=== PATIENT | male | born 1995 | race Two or more races ===

== ENCOUNTER 2023-08-10 14:13 | Emergency (ER) | payer SELFPAY ==
[~2023-08-10] VITALS: Ht 170.2 cm; Wt 126.0 kg
[2023-08-10 14:32] VITALS: BP 161/79; RESP 18; O2SAT 97
[2023-08-10 14:51] LABS: Basophils # (auto) 0 10 ^3/uL (0-0.2); Basophils % (auto) 0.4 % (0.0-2.0); Eosinophils # (auto) 0.1 10 ^3/uL (0-0.8); Eosinophils % (auto) 1.2 % (0.0-7.0); Hemoglobin 15.8 g/dL (13.5-17.5); Lymphocytes # (auto) 4.1 10 ^3/uL (0.4-5.4); Lymphocytes % (auto) 37.7 % (10.0-50.0); Mean Corpuscular Hemoglobin 28.1 pg (28.0-32.0); Mean Corpuscular Hgb Conc. 33.5 g/dL (32.0-36.0); Mean Corpuscular Volume 83.8 fL (80.0-100.0); Monocytes # (auto) 0.8 10 ^3/uL (0-1.3); Monocytes % (auto) 6.9 % (0.0-12.0); Neutrophils # (auto) 5.9 10 ^3/uL (1.6-8.6); Neutrophils % (auto) 53.8 % (37.0-80.0); Nucleated Red Blood Cells % 0.1 %; Red Blood Cells 5.61 10^6/uL (4.5-5.90)
[2023-08-10 15:42] LABS: Alanine Aminotransferase 51 U/L (7-40); Albumin 4.6 g/dL (3.2-4.8); Alkaline Phosphatase 114 U/L (46-116); Anion Gap 6 (5-15); Aspartate Aminotransferase 20 U/L (13-40); BUN/Creatinine Ratio 15.3 (10.0-20.0); Blood Urea Nitrogen 13 mg/dL (9-23); Calcium 9.6 mg/dL (8.7-10.4); Carbon Dioxide 28 mmol/L (20-30); Chloride 101 mmol/L (98-107); Glucose 346 mg/dL (74-106); Potassium 4.6 mmol/L (3.5-5.1); Sodium 135 mmol/L (136-145)
[2023-08-10 15:43] LABS: Bilirubin, Total 0.3 mg/dL (0.2-1.0); Total Protein 7.6 g/dL (5.7-8.2)
[2023-08-10 16:00] VITALS: PULSE 75
== END 2023-08-10 17:56 | disposition home or self-care (01) ==
LOC: ER 14:13
DX: R07.89 Other chest pain (principal); I10 Essential (primary) hypertension; E78.5 Hyperlipidemia, unspecified; E11.9 Type 2 diabetes mellitus without complications; F17.210 Nicotine dependence, cigarettes, uncomplicated; F14.10 Cocaine abuse, uncomplicated
CPT/HCPCS: 36415; 71045; 80053; 83690; 84484; 85025; 85379; 93005

== ENCOUNTER 2025-09-03 09:39 | Emergency (ER) | payer MEDICAID, OTHER ==
[~2025-09-03] VITALS: Ht 170.2 cm; Wt 119.1 kg
[2025-09-03 09:41] VITALS: BP 135/80; PULSE 89; TEMP 97
[2025-09-03 09:53] VITALS: RESP 18; O2SAT 98
[2025-09-03] MEDS ORDERED: CLIN150C PO (10:03)
[2025-09-03] MEDS ORDERED: TRAM-626 PO (10:03)
--- NOTE | 2025-09-03 10:04 | ED.PDOC ---
History of Present Illness HPI Comments 30 y/o M, with PMHx of HTN, HLD, and DM presents to the ED for CC of abscess. Patient states, he has a left axillary abscess that has had for xyears that is now painful to touch and growing in size. At this time no erythema or discharge are noted. No other symptoms or modifying factors are present at this time. Chief Complaint: Abscess Time Seen by MD: 09:55 Reviewed Notes: Nurses Notes, Medications, Allergies Allergies: Coded Allergies: NO KNOWN ALLERGIES (Unverified , 08/10/23) Home Meds Active Scripts Clindamycin Hcl (CLEOCIN) 150 Mg Cap, 1 CAP PO TID, #30 CAP Prov:CROONA NARANJO MD 09/03/25 Tramadol HCl (Tramadol HCl) 50 Mg Tab, 50 MG PO Q8HP PRN for 5 Days, #15 TAB Prov:CORONA NARANJO MD 09/03/25 Information Source: Patient Mode of Arrival: Ambulatory Severity: Moderate Timing: Months Duration: Since onset Prehospital treatment: None Past Medical History PAST MEDICAL HISTORY: DM, High Lipids, HTN Surgical History: Denies all surgeries Family History Family History: Reviewed,noncontributory to illness, Family hx of DM Social History Smoker: Other Alcohol: Occasionally Drugs: Cocaine Lives In: Home Constitutional: denies: chills, diaphoresis, fatigue, fever, malaise, sweats, weakness, others EENTM: denies: blurred vision, double vision, ear bleeding, ear discharge, ear drainage, ear pain, ear ringing, eye pain, eye redness, hearing loss, mouth pain, mouth swelling, nasal discharge, nose bleeding, nose congestion, nose pain, photophobia, tearing, throat pain, throat swelling, voice changes, others Respiratory: denies: cough, hemoptysis, orthopnea, SOB at rest, shortness of breath, SOB with excertion, stridor, wheezing, others Cardiovascular: denies: chest pain, dizzy spells, diaphoresis, Dyspnea on exertion, edema, irregular heart beat, left arm pain, lightheadedness, pa lpitations, PND, syncope, others Gastrointestinal: denies: abdomen distended, abdominal pain, blood streaked bowels, constipated, diarrhea, dysphagia, difficulty swallowing, hematemesis, melena, nausea, poor appetite, poor fluid intake, rectal bleeding, rectal pain, vomiting, others Genitourinary: denies: burning, dysuria, flank pain, frequency, hematuria, incontinence, penile discharge, penile sore, pain, testicle pain, testicle swelling, urgency, others Neurological: denies: dizziness, fainting, headache, left sided numbness, left sided weakness, numbness, paresthesia, pre-existing deficit, right sided numbness, right sided weakness, seizure, speech problems, tingling, tremors, weakness, others Musculoskeletal: denies: back pain, gout, joint pain, joint swelling, muscle pain, muscle stiffness, neck pain, others Integumetry: reports: others (ABSCESS); denies: bruises, change in color, change in hair/nails, dryness, laceration, lesions, lumps, rash, wounds Allergic/Immunocompromised: denies: Difficulty Healing, Frequent Infections, Hives, Itching, others Hematologic/Lymphatic: denies: anemia, blood clots, easy bleeding, easy bruising, swollen glands, others Endocrine: denies: excessive hunger, excessive sweating, excessive thirst, excessive urination, flushing, intolerance to cold, intolerance to heat, unexplained weight gain, unexplained weight loss, others Psychiatric: denies: anxiety, bipolar disorder, depression, hopeless, panic disorder, schizophrenia, sleepless, suicidal, others Physical Exam General Appearance: No Apparent Distress HEENT: Normal ENT Inspection, Pharynx Normal, TMs Normal Neck: Full Range of Motion, Non-Tender, Normal, Normal Inspection Respiratory: Chest Non-Tender, Lungs Clear, No Accessory Muscle Use, No Respiratory Distress, Normal Breath Sounds Cardiovascular: No Edema, No JVD, No Murmur, No Gallop, Normal Peripheral Pulses, Regular Rate/Rhythm Breast Exam: Deferred Gastrointestinal: No Organomegaly, Non Tender, No Pulsatile Mass, Normal Bowel Sounds, Soft Genitalia: Deferred Pelvic: Deferred Rectal: Deferred Extremities: No calf tenderness, Normal capillary refill, No pedal edema, Other (There is a tender mass to the left axillary area with some mild redness. 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 Was a procedure done?: No Differential Dx Considerations may include: ABSCESS, SEBACEOUS CYST, LIPOMA X-Ray, Labs, Meds, VS Vital Signs Date Time Temp Pulse Resp B/P (MAP) Pulse Ox O2 Delivery O2 Flow Rate FiO2 09/03/25 09:53 18 98 Room Air* 0 21 09/03/25 09:41 97.0 89 15 135/80 96 97.0 The patient is being discharged at this time The patient was placed on Cleocin and tramadol The patient will return to the emergency department's condition worsens There is no sign of any fluctuance or possibility for drainage of this sebaceous cyst The patient is discharged Time of 1ST Reevaluation: 10:25 Reevaluation 1ST: Unchanged Patient Education/Counseling: Diagnosis, Treatment, Prognosis, Need For Follow Up Family Education/Counseling: No Family Present SEPSIS Sepsis Screen Date sepsis recognized/suspect: Sep 03, 2025 Time Sepsis recognized/suspect: 942 Recent Procedure: No On Antibiotic Therapy: No Respiratory Rate >20: No Heart Rate >90: No Temp<36 C (96.8 F) or >38.3 C: No SBP <90 or MAP <65 mmHG: No New Acute Mental Status Change: No Is the patient on CPAP, BIPAP,: No Vital Signs Date Time Temp Pulse Resp B/P (MAP) Pulse Ox O2 Delivery O2 Flow Rate FiO2 09/03/25 09:53 18 98 Room Air* 0 21 09/03/25 09:41 97.0 89 15 135/80 96 97.0 Departure 1 Departure Time of Disposition: 10:15 Impression: Primary Impression: Cellulitis of axilla Qualified Codes: L03.112 - Cellulitis of left axilla Disposition: HOME / SELF CARE / HOMELESS Condition: Fair e-Prescriptions Clindamycin Hcl (CLEOCIN) 150 Mg Cap 1 CAP PO TID, #30 CAP Prov: CORONA NARANJO MD 09/03/25 Tramadol HCl (Tramadol HCl) 50 Mg Tab 50 MG PO Q8HP PRN for 5 Days, #15 TAB Prov: CORONA NARANJO MD 09/03/25 Discharged With: Self Critical Care Note Critical Care Time?: No Stability Stability form required: No Heart Score Heart Score: Heart Score Response (Comments) Value History N/A 0 EKG N/A 0 Age N/A 0 Risk Factors N/A 0 Troponin N/A 0 Total 0 I personally scribed for CORONA NARANJO MD ([email or web address]) on 09/03/25 at 10:04. Electronically submitted by Katelyn Shea ([email or web address]). CORONA NARANJO MD Sep 03, 2025 10:04
== END 2025-09-03 10:23 | disposition home or self-care (01) ==
LOC: ER 09:41
DX: L03.112 Cellulitis of left axilla (principal); E11.9 Type 2 diabetes mellitus without complications; E78.5 Hyperlipidemia, unspecified; I10 Essential (primary) hypertension; F17.200 Nicotine dependence, unspecified, uncomplicated; Z88.5 Allergy status to narcotic agent

== ENCOUNTER 2025-09-15 17:06 | Emergency (ER) | payer MEDICAID ==
[~2025-09-15] VITALS: Ht 170.2 cm; Wt 114.0 kg
[~2025-09-15 17:06] MED LIST: CLIN150C PO; TRAM-626 PO
[2025-09-15 17:07] VITALS: BP 149/83; PULSE 83; RESP 18; TEMP 98.2; O2SAT 97
[2025-09-15] MEDS ORDERED: BACDST PO (18:04)
--- NOTE | 2025-09-15 18:05 | ED.PDOC ---
History of Present Illness(SKN HPI Comments 30-year-old male states he was seen here on 09/03. He says he has been having an abscess in his left axilla. Says two days ago the abscess mildly pop. States the pain has been coming down. Says that he did not finish taking the clindamycin because he started getting what he believes was side effects from it. Reports a rash on his face and nausea and vomiting. States the swelling has gone down significantly since his initial visit Chief Complaint: Abscess Time Seen by MD: 17:35 History of Present Illness: Nurses Notes Allergies: Coded Allergies: NO KNOWN ALLERGIES (Unverified , 08/10/23) Home Meds Active Scripts Clindamycin Hcl (CLEOCIN) 150 Mg Cap, 1 CAP PO TID, #30 CAP Prov:CORONA NARANJO MD 09/03/25 Tramadol HCl (Tramadol HCl) 50 Mg Tab, 50 MG PO Q8HP PRN for 5 Days, #15 TAB Prov:CORONA NARANJO MD 09/03/25 Information Source: Patient Mode of Arrival: Ambulatory Past Medical History PAST MEDICAL HISTORY: DM, High Lipids, HTN Surgical History: Denies all surgeries Family History Family History: Reviewed,noncontributory to illness, Family hx of DM Social History Smoker: Other Alcohol: Occasionally Drugs: Cocaine Lives In: Home Physical Exam General Appearance: No Apparent Distress, Normal HEENT: Normal ENT Inspection, Pharynx Normal, TMs Normal Neck: Full Range of Motion, Non-Tender, Normal, Normal Inspection Respiratory: Chest Non-Tender, Lungs Clear, No Accessory Muscle Use, No Respiratory Distress, Normal Breath Sounds Cardiovascular: No Edema, No JVD, No Murmur, No Gallop, Normal Peripheral Pulses, Regular Rate/Rhythm Breast Exam: Deferred Gastrointestinal: No Organomegaly, Non Tender, No Pulsatile Mass, Normal Bowel Sounds, Soft Genitalia: Deferred Pelvic: Deferred Rectal: Deferred Extremities: No calf tenderness, Normal capillary refill, Normal inspection, Normal range of motion, Non-tender, No pedal edema Musculoskeletal : Apperance: Normal Neurologic: Alert, rod 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 Scant discharge) Lymphatic: No Adenopathy Was a procedure done? Was a procedure done?: No Differential Diagnosis (INTG) Differential Diagnosis: Cellulitis, Hematoma, Insect Envenomation Abscess: Abscess, Bacteremia X-Ray, Labs, Meds, VS Vital Signs Date Time Temp Pulse Resp B/P (MAP) Pulse Ox O2 Delivery O2 Flow Rate FiO2 09/15/25 17:07 98.2 83 18 149/83 97 98.2 X-Ray, Labs, Meds, VS Comment Imaging was reviewed by this provider, there is no obvious pathological or acute disease process. Pending radiology review Labs were reviewed by this provider, no abnormalities Vital signs reviewed by this provider, clinically stable Time of 1ST Reevaluation: 18:05 Reevaluation 1ST: Unchanged Patient Education/Counseling: Diagnosis, Treatment, Need For Follow Up (Follow up with PCP next available appointment. Return to the emergency department if symptoms worsen.) Family Education/Counseling: Diagnosis, Treatment SEPSIS Sepsis Screen Date sepsis recognized/suspect: Sep 15, 2025 Time Sepsis recognized/suspect: 1708 Recent Procedure: No On Antibiotic Therapy: No Respiratory Rate >20: No Heart Rate >90: No Temp<36 C (96.8 F) or >38.3 C: No SBP <90 or MAP <65 mmHG: No New Acute Mental Status Change: No Is the patient on CPAP, BIPAP,: No Vital Signs Date Time Temp Pulse Resp B/P (MAP) Pulse Ox O2 Delivery O2 Flow Rate FiO2 09/15/25 17:07 98.2 83 18 149/83 97 98.2 Departure 1 Departure Time of Disposition: 18:04 Impression: Primary Impression: Cellulitis of axilla Qualified Codes: L03.112 - Cellulitis of left axilla Disposition: 01 HOME / SELF CARE / HOMELESS Condition: Fair e-Prescriptions Sulfamethoxazole W/Trimethopri (Bactrim Ds Tablet) 1 Tab Tb 1 TAB PO BID PRN for 7 Days, #14 TAB Prov: SERGIO RYDER [employer] 09/15/25 Discharged With: Self Critical Care Note Critical Care Time?: No Stability Stability form required: No Heart Score Heart Score: Heart Score Response (Comments) Value History N/A 0 EKG N/A 0 Age N/A 0 Risk Factors N/A 0 Troponin N/A 0 Total 0 SERGIO RYDER Sep 15, 2025 18:05
== END 2025-09-15 18:32 | disposition home or self-care (01) ==
LOC: ER 17:06
DX: L03.112 Cellulitis of left axilla (principal); F10.90 Alcohol use, unspecified, uncomplicated; F14.90 Cocaine use, unspecified, uncomplicated; I10 Essential (primary) hypertension; E11.9 Type 2 diabetes mellitus without complications; E78.5 Hyperlipidemia, unspecified; F17.200 Nicotine dependence, unspecified, uncomplicated; Z79.899 Other long term (current) drug therapy; Y90.9 Presence of alcohol in blood, level not specified